=== PATIENT | male | born 2000 | race Caucasian/White ===

== ENCOUNTER 2025-04-09 14:26 | Observation (INO) | payer BC, SELFPAY ==
[2025-04-09] VITALS (7 sets, daily range): BP systolic 142–185; BP diastolic 84–114; PULSE 58–82; RESP 11–22; TEMP 36.5–36.8; O2SAT 97–98; BMI 23.7; BMI 25.5
--- NOTE | 2025-04-09 14:31 | HMH.EDGENADL ---
Discharge Plan Disposition Patient Disposition: Admitted Condition: Good Clinical Impressions Clinical Impression: Alcohol withdrawal, Nausea, vomiting and diarrhea, Rhabdomyolysis Discharge ED Provider: Mari Trujillo General Adult HPI <Adriana Phelps MD - Last Filed: 04/09/25 14:59> General Chief complaint: Nausea/Vomiting/Diarrhea Stated complaint: vomiting, stomach pain, hot/cold Time Seen by Provider: 04/09/25 14:31 History of Present Illness HPI narrative: Patient is a 25-year-old with past medical history significant for alcohol use disorder presents the emergency department with nausea vomiting and diarrhea. No blood in vomit or diarrhea. Patient has been trying to decrease his alcohol use and now drinks 7 mixed drinks from the gas station per day. Last drink was yesterday evening. 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 Denies abdominal pain. Patient also has tremulousness headache and bodyaches. Related Data Allergies Allergy/AdvReac Type Severity Reaction Status Date / Time No Known Allergies Allergy Verified 04/09/25 14:43 PFSH <Adriana Phelps MD - Last Filed: 04/09/25 14:59> [facility] Disclaimer: The information contained in this section may have been updated after the patient was seen, as this information can be updated by other users. Social History (Updated 04/09/25 @ 14:59 by Adriana Phelps MD) Smoking Status: Current every day smoker alcohol intake: current current occupational status: employed Travel in the last 8 weeks?: None Have you lived/traveled outside US in past 30 days?: No Contact w/someone who lives/traveled outside US past 30 days?: No Exposure to someone with infectious disease in past 14 days?: No Do you have a fever (greater than 100.4 F or 38 C)?: No Have you tested positive for COVID-19?: No Exposed to someone with COVID-19 in past 14 days?: No Do you have a sore throat?: No Do you have a cough?: No Do you have any weakness?: No Do you have any diarrhea?: No Are you experiencing any unusual bleeding?: No Do you have any muscle aches/pain?: No Do you have any abdominal pain?: Yes Are you experiencing loss of taste or smell?: No <Adriana Phelps MD - Last Filed: 04/09/25 14:59> ROS Obtained: Yes All systems reviewed & no additional complaints except as documented Physical Exam <Adriana Phelps MD - Last Filed: 04/09/25 14:59> General General appearance: alert and anxious Comment: diaphoretic, tremulousness Head Head exam: atraumatic Eye Eye exam: Present normal appearance and PERRL ENT ENT exam: Present mucous membranes dry Chest Chest inspection: Present normal inspection Respiratory Respiratory exam: Present normal lung sounds bilaterally; Absent respiratory distress Cardiovascular Cardiovascular exam: Present normal rhythm and tachycardia Abdominal Exam Abdominal exam: Present soft; Absent tenderness or guarding Neurological Exam Neurological exam: Present alert and oriented X3 Psychiatric Psychiatric exam: Present anxious Skin Skin exam: Present diaphoresis Medical Decision Making <Adriana Phelps MD - Last Filed: 04/09/25 14:59> Medical Records Screening: Per USPSTF and CDC recommendations, given the prevalence of disease in our region, it is our hospital?s policy to screen for HIV and viral Hepatitis for all patients aged 18 and over and those with ongoing risk factors. [facility] Inquiry Pt receiving controlled substance: No Vital Signs: 04/09/25 14:34 04/09/25 14:39 04/09/25 15:30 Temperature 98.3 F Temperature Source Oral Pulse Rate 82 64 Pulse Rate [Right] 66 Respiratory Rate 22 11 L Blood Pressure 185/114 H 142/96 H Blood Pressure [Right Arm] 185/114 H Blood Pressure Mean [Right Arm] 137 02 Sat by Pulse Oximetry 98 98 97 Oxygen Delivery Method Room Air Lab Data Lab Results 04/09/25 14:33: Urine Color Yellow, Urine Appearance Clear, Urine pH >= 9.0 H, Ur Specific [place] 1.010, Urine Protein 1+ A, Urine Glucose (UA) Negative, Urine Ketones Negative, Urine Blood Negative, Urine Nitrate Negative, Urine Bilirubin Negative, Urine Urobilinogen 0.2, Ur Leukocyte Esterase Negative, Urine RBC 3-5, Urine WBC 3-5, Ur Squamous Epith Cells 5-10, Urine Bacteria 3+, Urine Mucus 1+, Urine Opiates Screen Negative, Urine Methadone Screen Negative, Ur Barbituates Screen Negative, Ur Phencyclidine Scrn Negative, Ur Amphetamines Screen Negative, U Benzodiazepines Scrn Negative, Urine Cocaine Screen Negative, U Marijuana (THC) Screen Positive H 04/09/25 14:42: WBC 13.2 H, RBC 4.77, Hgb 14.7, Hct 42.2, MCV 88.5, MCH 30.8, MCHC 34.8, RDW 13.7, Plt Count 280, MPV 10.6 H, Neut % (Auto) 73.2, Lymph % (Auto) 18.7, [place] % (Auto) 7.1, Eos % (Auto) 0.4, Baso % (Auto) 0.3, Neut # (Auto) 9.7 H, Lymph # (Auto) 2.5, [place] # (Auto) 0.9, Eos # (Auto) 0.1, Baso # (Auto) 0.0, PT 11.0, INR 0.99, APTT 27.9, Sodium 141, Potassium 3.9, Chloride 107, Carbon Dioxide 28, Anion Gap 9.9, BUN 10, Creatinine 0.90, Estimated Creat Clear 141, Estimated GFR 103, Est GFR ( Amer) 124, Glucose 134 H, Calcium 10.3 H, Phosphorus 2.8, Magnesium 1.8, Total Bilirubin 1.0, AST 44, ALT 30, Alkaline Phosphatase 112, Total Creatine Kinase 720 H*, Total Protein 8.6 H, Albumin 4.9, Globulin 3.7 H, Albumin/Globulin Ratio 1.3, Lipase 28, Plasma/Serum Alcohol < 10 04/09/25 14:42 04/09/25 14:42 Orders (Tests/Meds): ED MEDICATIONS Generic Name Dose Route Start Last Admin Trade Name Freq PRN Reason Stop Dose Admin Diazepam 10 mg 04/09/25 14:39 04/09/25 14:53 Diazepam 10mg/2ml Syringe IV 05/09/25 14:38 10 mg Q1HP PRN Administration CIWA >16 Diazepam 5 mg 04/09/25 14:39 Diazepam 5mg Tablet PO 05/09/25 14:38 Q1HP PRN CIWA Score 8-15 Diazepam 5 mg 04/09/25 14:39 Diazepam 5mg Tablet PO 05/09/25 14:38 Q6HP PRN CIWA 2-7 Folic Acid 1 mg 04/10/25 09:00 Folic Acid 1mg Tablet PO 05/10/25 08:59 DAILY ELDER Multivitamins 10 ml/ Thiamine 1,015 mls @ 150 mls/hr 04/09/25 14:45 04/09/25 15:31 HCl 100 mg/ Magnesium Sulfate IV 04/09/25 21:30 150 mls/hr 2 gm/ Lactated Ringer's .Q6H46M ELDER Administration Multivitamins 1 each 04/09/25 17:00 Multivitamin Tablet PO 05/09/25 16:59 1700 ELDER Ondansetron HCl 4 mg 04/09/25 14:39 Ondansetron 4mg/2ml Vial IV 05/09/25 14:38 Q6HP PRN Nausea Thiamine HCl 100 mg 04/10/25 09:00 Thiamine 100mg Tablet PO 04/12/25 09:01 DAILY E[facility]ER Discontinued Medications Generic Name Dose Route Start Last Admin Trade Name Freq PRN Reason Stop Dose Admin Folic Acid 1 mg 04/09/25 14:39 04/09/25 15:45 Folic Acid 1mg Tablet PO 04/09/25 14:40 1 mg ONCE ONE Administration Lactated Ringer's 1,000 mls @ 999 mls/hr 04/09/25 14:43 04/09/25 15:44 Lactated Ringer's 1000 Ml Bag IV 04/09/25 15:43 999 mls/hr .Q1H1M ONE Administration ORDERS Category Date Time Status Activated Partial Thrombo Time Routine Lab 04/09/25 14:42 Completed Complete Blood Count Auto Diff Stat Lab 04/09/25 14:42 Completed Comprehensive Metabolic Panel Stat Lab 04/09/25 14:42 Completed Creatine Kinase Stat Lab 04/09/25 14:42 Completed Diarrhea 23 Panel, PCR Stat Lab 04/09/25 14:39 Ordered Drug Screen,Urine Routine Lab 04/09/25 14:33 Completed Ethyl Alcohol Stat Lab 04/09/25 14:42 Completed Lipase Routine Lab 04/09/25 14:42 Completed Magnesium Stat Lab 04/09/25 14:42 Completed Phosphorous Stat Lab 04/09/25 14:42 Completed Prothrombin Time INR Routine Lab 04/09/25 14:42 Completed UA [Urinalysis and Microscopic] Stat Lab 04/09/25 14:33 Completed Urine Culture Stat Micro 04/09/25 14:33 Received Medical Decision Narrative: In summary, this 25-year-old male presents to the emergency department today with vomiting. On initial evaluation patient is normal HR hypertensive afebrile saturating appropriately on room air and diaphoretic and in acute distress. Differential diagnosis includes but is not limited to alcohol withdrawal viral or bacterial gastroenteritis dehydration rhabdomyolysis. Based on these concerns, I ordered CBC CMP lipase alcohol level UDS CK GI PCR EKG PT/INR PTT UA. ECG personally interpreted demonstrates normal sinus rhythm no ST elevation ST depression or T wave inversions concerning for ischemia Patient received Zofran, diazepam, 1 L of LR and rally pack for treatment. At 3 PM transfer care given to Dr. Trujillo to follow-up laboratory workup and reassessment of patient's symptoms likely will need to be admitted for alcohol withdrawal and dehydration. <Mari Trujillo, DO - Last Filed: 04/09/25 16:17> Vital Signs: 04/09/25 14:34 04/09/25 14:39 04/09/25 15:30 Temperature 98.3 F Temperature Source Oral Pulse Rate 82 64 Pulse Rate [Right] 66 Respiratory Rate 22 11 L Blood Pressure 185/114 H 142/96 H Blood Pressure [Right Arm] 185/114 H Blood Pressure Mean [Right Arm] 137 02 Sat by Pulse Oximetry 98 98 97 Oxygen Delivery Method Room Air Lab Data Lab Results 04/09/25 14:33: Urine Color Yellow, Urine Appearance Clear, Urine pH >= 9.0 H, Ur Specific [place] 1.010, Urine Protein 1+ A, Urine Glucose (UA) Negative, Urine Ketones Negative, Urine Blood Negative, Urine Nitrate Negative, Urine Bilirubin Negative, Urine Urobilinogen 0.2, Ur Leukocyte Esterase Negative, Urine RBC 3-5, Urine WBC 3-5, Ur Squamous Epith Cells 5-10, Urine Bacteria 3+, Urine Mucus 1+, Urine Opiates Screen Negative, Urine Methadone Screen Negative, Ur Barbituates Screen Negative, Ur Phencyclidine Scrn Negative, Ur Amphetamines Screen Negative, U Benzodiazepines Scrn Negative, Urine Cocaine Screen Negative, U Marijuana (THC) Screen Positive H 04/09/25 14:42: WBC 13.2 H, RBC 4.77, Hgb 14.7, Hct 42.2, MCV 88.5, MCH 30.8, MCHC 34.8, RDW 13.7, Plt Count 280, MPV 10.6 H, Neut % (Auto) 73.2, Lymph % (Auto) 18.7, [place] % (Auto) 7.1, Eos % (Auto) 0.4, Baso % (Auto) 0.3, Neut # (Auto) 9.7 H, Lymph # (Auto) 2.5, [place] # (Auto) 0.9, Eos # (Auto) 0.1, Baso # (Auto) 0.0, PT 11.0, INR 0.99, APTT 27.9, Sodium 141, Potassium 3.9, Chloride 107, Carbon Dioxide 28, Anion Gap 9.9, BUN 10, Creatinine 0.90, Estimated Creat Clear 141, Estimated GFR 103, Est GFR ( Amer) 124, Glucose 134 H, Calcium 10.3 H, Phosphorus 2.8, Magnesium 1.8, Total Bilirubin 1.0, AST 44, ALT 30, Alkaline Phosphatase 112, Total Creatine Kinase 720 H*, Total Protein 8.6 H, Albumin 4.9, Globulin 3.7 H, Albumin/Globulin Ratio 1.3, Lipase 28, Plasma/Serum Alcohol < 10 Orders (Tests/Meds): ED MEDICATIONS Generic Name Dose Route Start Last Admin Trade Name Freq PRN Reason Stop Dose Admin Diazepam 10 mg 04/09/25 14:39 04/09/25 14:53 Diazepam 10mg/2ml Syringe IV 05/09/25 14:38 10 mg Q1HP PRN Administration CIWA >16 Diazepam 5 mg 04/09/25 14:39 Diazepam 5mg Tablet PO 05/09/25 14:38 Q1HP PRN CIWA Score 8-15 Diazepam 5 mg 04/09/25 14:39 Diazepam 5mg Tablet PO 05/09/25 14:38 Q6HP PRN CIWA 2-7 Folic Acid 1 mg 04/10/25 09:00 Folic Acid 1mg Tablet PO 05/10/25 08:59 [facility]ILY [facility] Multivitamins 10 ml/ Thiamine 1,015 mls @ 150 mls/hr 04/09/25 14:45 04/09/25 15:31 HCl 100 mg/ Magnesium Sulfate IV 04/09/25 21:30 150 mls/hr 2 gm/ Lactated Ringer's .Q6H46M ELDER Administration Multivitamins 1 each 04/09/25 17:00 Multivitamin Tablet PO 05/09/25 16:59 1700 ELDER Ondansetron HCl 4 mg 04/09/25 14:39 Ondansetron 4mg/2ml Vial IV 05/09/25 14:38 Q6HP PRN Nausea Thiamine HCl 100 mg 04/10/25 09:00 Thiamine 100mg Tablet PO 04/12/25 09:01 DAILY ELDER Discontinued Medications Generic Name Dose Route Start Last Admin Trade Name Mary PRN Reason Stop Dose Admin Folic Acid 1 mg 04/09/25 14:39 04/09/25 15:45 Folic Acid 1mg Tablet PO 04/09/25 14:40 1 mg ONCE ONE Administration Lactated Ringer's 1,000 mls @ 999 mls/hr 04/09/25 14:43 04/09/25 15:44 Lactated Ringer's 1000 Ml Bag IV 04/09/25 15:43 999 mls/hr .Q1H1M ONE Administration ORDERS Category Date Time Status Activated Partial Thrombo Time Routine Lab 04/09/25 14:42 Completed Complete Blood Count Auto Diff Stat Lab 04/09/25 14:42 Completed Comprehensive Metabolic Panel Stat Lab 04/09/25 14:42 Completed Creatine Kinase Stat Lab 04/09/25 14:42 Completed Diarrhea 23 Panel, PCR Stat Lab 04/09/25 14:39 Ordered Drug Screen,Urine Routine Lab 04/09/25 14:33 Completed Ethyl Alcohol Stat Lab 04/09/25 14:42 Completed Lipase Routine Lab 04/09/25 14:42 Completed Magnesium Stat Lab 04/09/25 14:42 Completed Phosphorous Stat Lab 04/09/25 14:42 Completed Prothrombin Time INR Routine Lab 04/09/25 14:42 Completed UA [Urinalysis and Microscopic] Stat Lab 04/09/25 14:33 Completed Urine Culture Stat Micro 04/09/25 14:33 Received Medical Decision Narrative: In summary, this 25-year-old male presents to the emergency department today with vomiting. On initial evaluation patient is normal HR hypertensive afebrile saturating appropriately on room air and diaphoretic and in acute distress. Differential diagnosis includes but is not limited to alcohol withdrawal viral or bacterial gastroenteritis dehydration rhabdomyolysis. Based on these concerns, I ordered CBC CMP lipase alcohol level UDS CK GI PCR EKG PT/INR PTT UA. ECG personally interpreted demonstrates normal sinus rhythm no ST elevation ST depression or T wave inversions concerning for ischemia Patient received Zofran, diazepam, 1 L of LR and rally pack for treatment. At 3 PM transfer care given to Dr. Trujillo to follow-up laboratory workup and reassessment of patient's symptoms likely will need to be admitted for alcohol withdrawal and dehydration. DO Ronnie: I assumed care of the patient at 3 PM at time of departure the previous provider. On my assessment, he is lying in bed in no acute distress. He initially had a CIWA of 15 but on repeat is 10:07 of Valium. Labs significant for mild leukocytosis in the setting of profuse nausea, vomiting, and diarrhea. He has no abdominal pain or anything that suggest acute infection. Urine is contaminated with squamous cells but he does not have any urinary symptoms. Chemistry demonstrates elevated CK at 720, but normal kidney function. He has normal liver enzymes, normal lipase. Ultimately given profuse nausea, vomiting, and diarrhea, alcohol withdrawals, rhabdomyolysis, I feel he would benefit from admission for further evaluation and management. Fluid resuscitation is ongoing at this time and will continue to monitor on CIWA protocols. I had an interactive discussion with the hospitalist who admitted the patient in stable condition for further evaluation and management. Critical Care <Adriana Phelps MD - Last Filed: 04/09/25 14:59> Critical Care Time Critical Care Time: No
[2025-04-09 14:38] LABS: Microscopic, Urine URINE MICROSCOPIC (MICROSCOPIC)
--- NOTE | 2025-04-09 14:39 | ECG_ITS ---
APPROVED REPORT Exam: Resting ECG HR:72 bpm ECG Measurements Heart Rate 72 AXES MS 161 P 65 QRSd 97 QRS 84 QT 424 T 38 QTc 448 Conclusion SINUS RHYTHM INCOMPLETE RIGHT BUNDLE BRANCH BLOCK [90+ ms QRS DURATION, TERMINAL R IN V1/V2, 40+ ms S IN I/aVL/V4/V5/V6] BORDERLINE ECG UNCONFIRMED REPORT Electronically signed by : EVAN PRADHAN, 04/10/2025 02:39:40
[2025-04-09 14:42] LABS: Appearance,Urine CLEAR (Clear); Bilirubin,Urine Negative (Negative); Blood, Urine Negative (Negative); Color,Urine YELLOW (Yellow); Glucose,Urine (UA) Negative (Negative); Ketones,Urine Negative (Negative); Leukocyte Esterase,Urine Negative (Negative); Nitrate,Urine Negative (Negative); Protein,Urine 1+ (Negative); Urobilinogen,Urine 0.2 EU/dl (0.2)
[2025-04-09 14:44] LABS: PH,Urine >= 9.0 (5.0-8.5)
--- NOTE | 2025-04-09 14:51 | PC.NURSE ---
Pt discloses that he does have a hx of having a seizure when he was sick in the past. Provider and and primary RN notified. Seizure pads applied to bed. staff also notified that patient does have a small knife on his hip.
[2025-04-09] MEDS: diazePAM 10MG/2ML SYRINGE 10 MG IV (14:53)
[2025-04-09 15:00] LABS: Bacteria,Urine 3+ /lpf; Mucus,Urine 1+ /lpf
[2025-04-09 15:02] LABS: Basophils % 0.3 % (0.1-2.0); Eosinophils # 0.1 Kmm3 (0.0-0.4); Eosinophils % 0.4 % (0.1-12.0); Hematocrit 42.2 % (42.0-52.0); Hemoglobin 14.7 g/dL (14.1-18.0); Immature Granulocytes # 0.04 10^3uL; Immature Granulocytes % 0.3 %; Lymphocytes # 2.5 K/mm3 (0.7-4.5); Lymphocytes % 18.7 % (10-50); Mean Corpuscular HGB Conc 34.8 g/dL (31.8-35.4); Mean Corpuscular Hemoglobin 30.8 pg (27.0-31.2); Mean Corpuscular Volume 88.5 fl (80-94); Mean Platelet Volume 10.6 fl (7.4-10.4); Monocytes # 0.9 K/mm3 (0.1-1.0); Monocytes % 7.1 % (1.7-9.3); Neutrophils # 9.7 K/mm3 (1.8-7.8); Neutrophils % 73.2 % (37.0-80.0); Nucleated Red Blood Cells # 0 10^3/uL; Nucleated Red Blood Cells % 0 %; Platelet Count 280 K/mm3 (142-424); Red Blood Count 4.77 M/mm3 (4.60-6.20); Red Cell Distribution Width 13.7 % (11.5-17.5); Red Cell Distribution Width-SD 44.3 fL; White Blood Count 13.2 K/mm3 (4.8-10.8)
[2025-04-09 15:15] LABS: Lipase 28 U/L (23-300)
[2025-04-09 15:17] LABS: Activated Partial Thrombo Time 27.9 seconds (22.8-30.6); Alanine Aminotransferase 30 U/L (12-78); Albumin Level 4.9 g/dl (3.5-5.0); Albumin/Globulin Ratio 1.3 (1.1-1.8); Alkaline Phosphatase 112 U/L (38-126); Anion Gap 9.9 mEq/L (5-15); Aspartate Amino Transferase 44 U/L (17-59); Blood Urea Nitrogen 10 mg/dl (9-20); Calcium 10.3 mg/dl (8.4-10.2); Carbon Dioxide 28 mmol/L (22.0-30.0); Chloride 107 mmol/L (98-107); Creatine Kinase 720 U/L (55-170); Creatinine Clearance Estimated 141 mL/min (50-200); Estimated Glomerular Filt Rate 103 ml/min (>60); GFR (African American) 124 ML/MIN (>60); Globulin 3.7 g/dL (1.3-3.2); Glucose 134 mg/dl (74-100); INR 0.99 (0.9-1.1); Magnesium 1.8 mg/dl (1.6-2.3); Phosphorous 2.8 mg/dl (2.5-4.5); Potassium 3.9 mmoL/L (3.5-5.1); Sodium 141 mmol/L (136-145); Total Protein,Serum 8.6 g/dl (6.3-8.2)
[2025-04-09 15:19] LABS: Ethyl Alcohol < 10 mg/dl (0-10)
[2025-04-09] MEDS: MVI, ADULT NO.1 WITH VIT K 10 ML, THIAMINE HCL 100 MG, MAGNESIUM SULFATE 2 GM in LACTAT... 150 ML IV (15:31)
[2025-04-09 15:32] LABS: Barbiturates Screen,Urine Negative ng/ml (<200)
[2025-04-09 15:33] LABS: Amphetamine/Metha Screen,Urine Negative ng/ml (<1000); Benzodiazepines Screen,Urine Negative ng/ml (<200)
[2025-04-09 15:34] LABS: Methadone Screen,Urine Negative ng/ml (<300)
[2025-04-09 15:35] LABS: Cannabinoid Screen,Urine Positive ng/ml (<50); Cocaine Screen,Urine Negative ng/ml (<300)
[2025-04-09 15:36] LABS: Opiate Screen,Urine Negative ng/ml (<300); Phencyclidine Screen,Urine Negative ng/ml (<25)
[2025-04-09] MEDS: LACTATED RINGERS 1000ML 1,000 ML 999 ML IV (15:44)
[2025-04-09] MEDS: FOLIC ACID 1MG TABLET 1 MG PO (15:45)
--- NOTE | 2025-04-09 16:08 | PC.NURSE ---
I notified of the need for a bed to admit.
[2025-04-09] MEDS: MULTIVITAMIN TABLET 1 EACH PO (16:14)
--- NOTE | 2025-04-09 16:20 | PC.NURSE ---
report called to [facility]
--- NOTE | 2025-04-09 16:31 | PC.NURSE ---
arrived by w/c from ED
--- NOTE | 2025-04-09 16:59 | EXP.HP ---
History of Present Illness *Admission Date: 04/09/25 *Reason for visit:: Alcohol withdrawal *History of present illness: Jean Claude Dahl is a 25-year-old male with a medical history significant for alcohol use disorder, alcohol withdrawal seizures who presents with 1 day onset of diaphoresis, tremors. 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 He states over the past week he has been drinking quite heavily in the afternoons, and this morning he woke up with sweatiness and tremors, nausea/vomiting which prompted him to come to the ER. States his last drink was yesterday. He also states he has been drinking out of spring [place] and thinks his symptoms are from that. Denies abdominal pain, diarrhea, fever/chills, chest pain, shortness of breath. Also endorses smoking weed but is a chronic habit and has not had issues before with it. Workup in the ED significant for WBC 13.2, calcium 10.3, CK 720. Initial CIWA 15 which improved with Valium 10 mg. Case discussed with ED provider and decision made to admit patient for alcohol withdrawal, rhabdomyolysis. [facility] Disclaimer: The information contained in this section may have been updated after the patient was seen, as this information can be updated by other users. Social History (Updated 04/09/25 @ 14:59 by Adriana Phelps MD) Smoking Status: Current every day smoker alcohol intake: current current occupational status: employed Travel in the last 8 weeks?: None Have you lived/traveled outside US in past 30 days?: No Contact w/someone who lives/traveled outside US past 30 days?: No Exposure to someone with infectious disease in past 14 days?: No Do you have a fever (greater than 100.4 F or 38 C)?: No Have you tested positive for COVID-19?: No Exposed to someone with COVID-19 in past 14 days?: No Do you have a sore throat?: No Do you have a cough?: No Do you have any weakness?: No Do you have any diarrhea?: No Are you experiencing any unusual bleeding?: No Do you have any muscle aches/pain?: No Do you have any abdominal pain?: Yes Are you experiencing loss of taste or smell?: No Other Medical History Have you received the Flu Vaccine for this season: No Have you received the Pneumonia Vaccine: No Meds Home Medications and Allergies Home Medications ?Medication ?Instructions ?Recorded ?Confirmed ?Type No Known Home Medications 04/09/25 04/09/25 History New Prescriptions to Start Prescriptions: Allergies Allergy/AdvReac Type Severity Reaction Status Date / Time No Known Allergies Allergy Verified 04/09/25 14:43 Exam Data for Last 24 hours Vital signs and Labs for Last 24 Hours: Temp Pulse Resp BP Pulse Ox O2 Del Method 98.1 F 65 17 174/84 H 98 Room Air 04/09/25 16:48 04/09/25 16:48 04/09/25 16:48 04/09/25 16:48 04/09/25 16:48 04/09/25 16:48 Laboratory Results - last 24 hr 04/09/25 14:33: Urine Color Yellow, Urine Appearance Clear, Urine pH >= 9.0 H, Ur Specific [place] 1.010, Urine Protein 1+ A, Urine Glucose (UA) Negative, Urine Ketones Negative, Urine Blood Negative, Urine Nitrate Negative, Urine Bilirubin Negative, Urine Urobilinogen 0.2, Ur Leukocyte Esterase Negative, Urine RBC 3-5, Urine WBC 3-5, Ur Squamous Epith Cells 5-10, Urine Bacteria 3+, Urine Mucus 1+, Urine Opiates Screen Negative, Urine Methadone Screen Negative, Ur Barbituates Screen Negative, Ur Phencyclidine Scrn Negative, Ur Amphetamines Screen Negative, U Benzodiazepines Scrn Negative, Urine Cocaine Screen Negative, U Marijuana (THC) Screen Positive H 04/09/25 14:42: WBC 13.2 H, RBC 4.77, Hgb 14.7, Hct 42.2, MCV 88.5, MCH 30.8, MCHC 34.8, RDW 13.7, Plt Count 280, MPV 10.6 H, Neut % (Auto) 73.2, Lymph % (Auto) 18.7, [place] % (Auto) 7.1, Eos % (Auto) 0.4, Baso % (Auto) 0.3, Neut # (Auto) 9.7 H, Lymph # (Auto) 2.5, [place] # (Auto) 0.9, Eos # (Auto) 0.1, Baso # (Auto) 0.0, PT 11.0, INR 0.99, APTT 27.9, Sodium 141, Potassium 3.9, Chloride 107, Carbon Dioxide 28, Anion Gap 9.9, BUN 10, Creatinine 0.90, Estimated Creat Clear 141, Estimated GFR 103, Est GFR ( Amer) 124, Glucose 134 H, Calcium 10.3 H, Phosphorus 2.8, Magnesium 1.8, Total Bilirubin 1.0, AST 44, ALT 30, Alkaline Phosphatase 112, Total Creatine Kinase 720 H*, Total Protein 8.6 H, Albumin 4.9, Globulin 3.7 H, Albumin/Globulin Ratio 1.3, Lipase 28, Plasma/Serum Alcohol < 10 I & O for Last 24 hours: Intake & Output 04/06/25 04/07/25 04/08/25 04/09/25 23:59 23:59 23:59 23:59 Weight 85.684 kg Constitutional Constitutional: no acute distress *Routine HEENT Exam Head: Present normocephalic Eye: Present EOMI and PERRL ENT: Present mucous membranes moist *Routine Neck Exam Neck: Present supple; Absent lymphadenopathy *Routine Respiratory Exam Respiratory: Present CTA bilaterally *Routine Cardiovascular Exam Cardiovascular: Present RRR *Routine Abdominal Exam Abdominal: Present soft and normoactive bowel sounds; Absent tenderness *Routine Rectal Exam Rectal:: deferred *Routine Genitalia Exam Genitalia:: deferred *Routine Extremities Exam Extremities: Absent cyanosis, clubbing or edema *Routine Skin Exam Skin: Present warm; Absent rash *Routine Neurological Exam Neurological: Present alert and oriented X3 Assessment and Plan *Assessment and plan (1) Rhabdomyolysis: Status: Acute Category: Medical Code(s): M62.82 - Rhabdomyolysis (2) Alcohol withdrawal: Status: Acute Category: Medical Code(s): F10.939 - Alcohol use, unspecified with withdrawal, unspecified Plan Jean Claude Dahl is a 25-year-old male with a medical history significant for alcohol use disorder, alcohol withdrawal seizures who presents with 1 day onset of diaphoresis, tremors. 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 He states over the past week he has been drinking quite heavily in the afternoons, and this morning he woke up with sweatiness and tremors, nausea/vomiting which prompted him to come to the ER. States his last drink was yesterday. He also states he has been drinking out of spring water and thinks his symptoms are from that. Denies abdominal pain, diarrhea, fever/chills, chest pain, shortness of breath. Also endorses smoking weed but is a chronic habit and has not had issues before with it. Workup in the ED significant for WBC 13.2, calcium 10.3, CK 720. Initial CIWA 15 which improved with Valium 10 mg. Case discussed with ED provider and decision made to admit patient for alcohol withdrawal, rhabdomyolysis. #Alcohol use disorder #Alcohol withdrawal ? Has been drinking heavily with beers over the past week. Last drink was day before admission. Initial CIWA 15. ? Initiated on CIWA protocol, Valium as needed. ? Finish rally pack. Daily vitamins. ? Does not have interest in detox at this time. #Rhabdomyolysis #Hypercalcemia ? Initial calcium 10.3, CK 720. In the setting of dehydration working out in the [place]. ? Continue with LR at 125 mL/h after rally pack. Full code DVT prophylaxis: Lovenox 40 mg
--- NOTE | 2025-04-09 19:41 | PC.NURSE ---
DURING ADMISSION ASSESSMENT, PATIENT WAS ASKED BY MD IF HE WOULD BE INTERESTED IN ANY ALCOHOL DETOX SERVICES, PATIENT DENIED BUT WAS OBSERVED NODDING HER HEAD 'YES' PERSISTENTLY, AFTER LEAVING THE ROOM PATIENTS SPECIFICALLY REQUESTED THAT WE PUSH FOR DETOX SERVICES AND SUPPORT.
[2025-04-09] MEDS: LACTATED RINGERS 1000ML 1,000 ML 125 ML IV (22:29)
[2025-04-10 04:00] VITALS: BP 151/80; PULSE 73; RESP 14; TEMP 37; O2SAT 99; BMI 23.7
[2025-04-10 06:20] LABS: Basophils % 0.4 % (0.1-2.0); Eosinophils # 0.2 Kmm3 (0.0-0.4); Hematocrit 39.1 % (42.0-52.0); Immature Granulocytes # 0.03 10^3uL; Immature Granulocytes % 0.4 %; Lymphocytes # 1.8 K/mm3 (0.7-4.5); Lymphocytes % 23.7 % (10-50); Mean Corpuscular HGB Conc 33.5 g/dL (31.8-35.4); Mean Corpuscular Hemoglobin 30.3 pg (27.0-31.2); Mean Corpuscular Volume 90.5 fl (80-94); Mean Platelet Volume 10.6 fl (7.4-10.4); Monocytes # 0.6 K/mm3 (0.1-1.0); Monocytes % 7.8 % (1.7-9.3); Neutrophils % 65.7 % (37.0-80.0); Nucleated Red Blood Cells # 0 10^3/uL; Nucleated Red Blood Cells % 0 %; Platelet Count 229 K/mm3 (142-424); Red Blood Count 4.32 M/mm3 (4.60-6.20); Red Cell Distribution Width-SD 46.6 fL; White Blood Count 7.7 K/mm3 (4.8-10.8)
[2025-04-10 06:30] LABS: Albumin Level 3.9 g/dl (3.5-5.0); Chloride 110 mmol/L (98-107); Potassium 3.9 mmoL/L (3.5-5.1); Sodium 140 mmol/L (136-145)
[2025-04-10 06:33] LABS: Alanine Aminotransferase 22 U/L (12-78); Albumin/Globulin Ratio 1.4 (1.1-1.8); Alkaline Phosphatase 82 U/L (38-126); Anion Gap 5.9 mEq/L (5-15); Aspartate Amino Transferase 33 U/L (17-59); Blood Urea Nitrogen 11 mg/dl (9-20); Calcium 8.9 mg/dl (8.4-10.2); Carbon Dioxide 28 mmol/L (22.0-30.0); Creatinine Clearance Estimated 141 mL/min (50-200); Estimated Glomerular Filt Rate 103 ml/min (>60); GFR (African American) 124 ML/MIN (>60); Globulin 2.8 g/dL (1.3-3.2); Glucose 101 mg/dl (74-100); Magnesium 2.2 mg/dl (1.6-2.3); Total Protein,Serum 6.7 g/dl (6.3-8.2)
--- NOTE | 2025-04-10 06:46 | PC.NURSE ---
Patient alert and oriented. Patient has rested very well, woken easily. Banana bag given, fluids started after bag was finished. CIWAs 0 throughout shift. Patient stated he had no problems and no tremors were present. No nausea or vomiting. No diarrhea. No headache. Call light in reach.
[2025-04-10 07:39] LABS: Hemoglobin 13.1 g/dL (14.1-18.0)
[2025-04-10 08:00] VITALS: BP 134/79; PULSE 56; RESP 16; TEMP 36.6; O2SAT 99
--- OUTSIDE RECORDS SUMMARY | 2025-04-10 10:00 | XMS_ITS | Clinical Summary ---
Author Organization [facility] Address [address] [place], [place] [id number] Care Team Providers Care Horticultural Services Supervisor Name Role Phone Unavailable Primary Care Provider Unavailabl e Allergies No known active allergies Medications No known medications Active Problems Problem Noted Date Diagnosed Date High myopia, both eyes 12/04/2022 PVD (posterior vitreous detachment), both eyes 0 12/04/2022 Vitreous floaters of both eyes 12/04/2022 Family History Medical History Relation Comments No Ocular Disease No Family History Social History Tobacco Use Types Packs/Day Years Used Date Smoking Tobacco: Never Smokeless Tobacco: Never Alcohol Use Standard Drinks/Week Comments Never 0 (1 standard drink = 0.6 oz pur e alcohol) AUDIT-C Answer Date Recorded Frequency of Alcohol Consumption Never 12/02/2019 Average Number of Drinks Not on file 020 Frequency of Binge Drinking Not on file 11/20 Area Deprivation Index Answer Date Titus rded National Score (1-100), lower number is lower ri sk 60 05/12/2024 State Score (1-10), lower number is lower risk 4 05/12/2024 Data from: https://www.neigh borhoodatlas.medicine.[facility].edu/. Last address used for calculation [address] 05/12/2024 Sex and Gender Information Value Date Recorded Sex Assigned at Not on file Legal Sex Male 9:31 AM EST Gender Identity Not on file Sexual Orientation Not on file Plan of Treatment Upcoming Encounters Date Type Department Care Team (Latest Contact Info) Description 05/18/2025 3:00 PM EDT Office Visit [facility] Ophthal[facility] [address] [place] [address] Michael Salvador, OD [address] [place], [place] [id number] 1 year high myopic Health Maintenance Due Date Last Done Comments Peds To Adult Transition Ini tial Discussion 2012 Peds To Adult Transition ual Assessment 02/22/2014 HPV Vaccine (1 - Male 3-dose series) 02/22/2015 Anxiety Screening 02/22/2018 Depression Screening 02/22/2018 HIV Screening 02/22/2018 Hepatitis C Screening 02/22/2018 DTaP,Tdap,Td Vaccine (7 - Td or Tdap) 05/19/2024 05/19/2014, 08/10/2004, 04/14/2001, Additional history exists Covid-19 Vaccine (2023-2 5 season) 2024 Influenza Vaccine (Season Ended) 2025 Hepatitis B Vaccine Completed 04/14/2001, 2000, [address] [facility] FEP PPO
[2025-04-10] MEDS: FOLIC ACID 1MG TABLET 1 MG PO (10:28)
[2025-04-10] MEDS: THIAMINE 100MG TABLET 100 MG PO (10:28)
--- NOTE | 2025-04-10 10:48 | P.DS_ITS ---
General Admission date:: 04/09/25 HPI HPI HPI: Jean Claude Dahl is a 25-year-old male with a medical history significant for alcohol use disorder, alcohol withdrawal seizures who presents with 1 day onset of diaphoresis, tremors. 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 He states over the past week he has been drinking quite heavily in the afternoons, and this morning he woke up with sweatiness and tremors, nausea/vomiting which prompted him to come to the ER. States his last drink was yesterday. He also states he has been drinking out of spring water and thinks his symptoms are from that. Denies abdominal pain, diarrhea, fever/chills, chest pain, shortness of breath. Also endorses smoking weed but is a chronic habit and has not had issues before with it. Workup in the ED significant for WBC 13.2, calcium 10.3, CK 720. Initial CIWA 15 which improved with Valium 10 mg. Case discussed with ED provider and decision made to admit patient for alcohol withdrawal, rhabdomyolysis. Hospital Course Hospital Course Hospital Course: Jean Claude Dahl is a 25-year-old male with a medical history significant for alcohol use disorder, alcohol withdrawal seizures who presents with 1 day onset of diaphoresis, tremors. 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 He states over the past week he has been drinking quite heavily in the afternoons, and this morning he woke up with sweatiness and tremors, nausea/vomiting which prompted him to come to the ER. States his last drink was yesterday. He also states he has been drinking out of spring water and thinks his symptoms are from that. Denies abdominal pain, diarrhea, fever/chills, chest pain, shortness of breath. Also endorses smoking weed but is a chronic habit and has not had issues before with it. Workup in the ED significant for WBC 13.2, calcium 10.3, CK 720. Initial CIWA 15 which improved with Valium 10 mg. Case discussed with ED provider and decision made to admit patient for alcohol withdrawal, rhabdomyolysis. #Alcohol use disorder #Alcohol withdrawal ? Has been drinking heavily with beers over the past week. Last drink was day before admission. Initial CIWA 15. ? Remained stable during hospital course. No significant withdrawal symptoms. Declined detox programs, but states he will try to taper on his own. #Rhabdomyolysis #Hypercalcemia ? Initial calcium 10.3, CK 720. In the setting of dehydration working out in the [place]. Improved with IV fluid resuscitation. Exam Data for Last 24 hours Vital signs and Labs for Last 24 Hours: Temp Pulse Resp BP Pulse Ox O2 Del Method 98 F 56 L 16 134/79 99 Room Air 04/10/25 08:00 04/10/25 08:00 04/10/25 08:00 04/10/25 08:00 04/10/25 08:00 04/10/25 09:23 Laboratory Results - last 24 hr 04/09/25 14:33: Urine Color Yellow, Urine Appearance Clear, Urine pH >= 9.0 H, Ur Specific Erskine 1.010, Urine Protein 1+ A, Urine Glucose (UA) Negative, Urine Ketones Negative, Urine Blood Negative, Urine Nitrate Negative, Urine Bilirubin Negative, Urine Urobilinogen 0.2, Ur Leukocyte Esterase Negative, Urine RBC 3-5, Urine WBC 3-5, Ur Squamous Epith Cells 5-10, Urine Bacteria 3+, Urine Mucus 1+, Urine Opiates Screen Negative, Urine Methadone Screen Negative, Ur Barbituates Screen Negative, Ur Phencyclidine Scrn Negative, Ur Amphetamines Screen Negative, U Benzodiazepines Scrn Negative, Urine Cocaine Screen Negative, U Marijuana (THC) Screen Positive H 04/09/25 14:42: WBC 13.2 H, RBC 4.77, Hgb 14.7, Hct 42.2, MCV 88.5, MCH 30.8, MCHC 34.8, RDW 13.7, Plt Count 280, MPV 10.6 H, Neut % (Auto) 73.2, Lymph % (Auto) 18.7, Rapides % (Auto) 7.1, Eos % (Auto) 0.4, Baso % (Auto) 0.3, Neut # (Auto) 9.7 H, Lymph # (Auto) 2.5, Rapides # (Auto) 0.9, Eos # (Auto) 0.1, Baso # (Auto) 0.0, PT 11.0, INR 0.99, APTT 27.9, Sodium 141, Potassium 3.9, Chloride 107, Carbon Dioxide 28, Anion Gap 9.9, BUN 10, Creatinine 0.90, Estimated Creat Clear 141, Estimated GFR 103, Est GFR ( Amer) 124, Glucose 134 H, Calcium 10.3 H, Phosphorus 2.8, Magnesium 1.8, Total Bilirubin 1.0, AST 44, ALT 30, Alkaline Phosphatase 112, Total Creatine Kinase 720 H*, Total Protein 8.6 H, Albumin 4.9, Globulin 3.7 H, Albumin/Globulin Ratio 1.3, Lipase 28, Plasma/Serum Alcohol < 10 04/10/25 05:58: WBC 7.7 D, RBC 4.32 L, Hgb 13.1 L D, Hct 39.1 L, MCV 90.5, MCH 30.3, MCHC 33.5, RDW 14.0, Plt Count 229, MPV 10.6 H, Neut % (Auto) 65.7, Lymph % (Auto) 23.7, Rapides % (Auto) 7.8, Eos % (Auto) 2.0, Baso % (Auto) 0.4, Neut # (Auto) 5.0, Lymph # (Auto) 1.8, Rapides # (Auto) 0.6, Eos # (Auto) 0.2, Baso # (Auto) 0.0, Sodium 140, Potassium 3.9, Chloride 110 H, Carbon Dioxide 28, Anion Gap 5.9, BUN 11, Creatinine 0.90, Estimated Creat Clear 141, Estimated GFR 103, Est GFR ( Amer) 124, Glucose 101 H D, Calcium 8.9, Magnesium 2.2 D, Total Bilirubin 1.0, AST 33, ALT 22 D, Alkaline Phosphatase 82, Total Protein 6.7, Albumin 3.9 D, Globulin 2.8, Albumin/Globulin Ratio 1.4 I & O for Last 24 hours: Intake & Output 04/07/25 04/08/25 04/09/25 04/10/25 23:59 23:59 23:59 23:59 Intake Total 240 / 240 Output Total 0 / 0 0 / 0 Balance 240 / 240 0 / 0 Weight 85.684 kg 79.379 kg Constitutional Constitutional: no acute distress *Routine HEENT Exam Head: Present normocephalic Eye: Present EOMI and PERRL ENT: Present mucous membranes moist *Routine Neck Exam Neck: Present supple; Absent lymphadenopathy *Routine Respiratory Exam Respiratory: Present CTA bilaterally *Routine Cardiovascular Exam Cardiovascular: Present RRR *Routine Abdominal Exam Abdominal: Present soft and normoactive bowel sounds; Absent tenderness *Routine Extremities Exam Extremities: Absent cyanosis, clubbing or edema *Routine Skin Exam Skin: Present warm; Absent rash *Routine Neurological Exam Neurological: Present alert and oriented X3 Results Data Completed and Pending Labs on day of discharge: Labs from last 24 hours 04/10/25 04/09/25 04/09/25 05:58 14:42 14:33 WBC 7.7 D 13.2 H RBC 4.32 L 4.77 Hgb 13.1 L D 14.7 Hct 39.1 L 42.2 MCV 90.5 88.5 MCH 30.3 30.8 MCHC 33.5 34.8 RDW 14.0 13.7 Plt Count 229 280 MPV 10.6 H 10.6 H Neut % (Auto) 65.7 73.2 Lymph % (Auto) 23.7 18.7 Rapides % (Auto) 7.8 7.1 Eos % (Auto) 2.0 0.4 Baso % (Auto) 0.4 0.3 Neut # (Auto) 5.0 9.7 H Lymph # (Auto) 1.8 2.5 Rapides # (Auto) 0.6 0.9 Eos # (Auto) 0.2 0.1 Baso # (Auto) 0.0 0.0 PT 11.0 INR 0.99 APTT 27.9 Sodium 140 141 Potassium 3.9 3.9 Chloride 110 H 107 Carbon Dioxide 28 28 Anion Gap 5.9 9.9 BUN 11 10 Creatinine 0.90 0.90 Estimated Creat Clear 141 141 Estimated GFR 103 103 Est GFR ( Amer) 124 124 Glucose 101 H D 134 H Calcium 8.9 10.3 H Phosphorus 2.8 Magnesium 2.2 D 1.8 Total Bilirubin 1.0 1.0 AST 33 44 ALT 22 D 30 Alkaline Phosphatase 82 112 Total Creatine Kinase 720 H* Total Protein 6.7 8.6 H Albumin 3.9 D 4.9 Globulin 2.8 3.7 H Albumin/Globulin Ratio 1.4 1.3 Lipase 28 Urine Color Yellow Urine Appearance Clear Urine pH >= 9.0 H Ur Specific Erskine 1.010 Urine Protein 1+ A Urine Glucose (UA) Negative Urine Ketones Negative Urine Blood Negative Urine Nitrate Negative Urine Bilirubin Negative Urine Urobilinogen 0.2 Ur Leukocyte Esterase Negative Urine RBC 3-5 Urine WBC 3-5 Ur Squamous Epith Cells 5-10 Urine Bacteria 3+ Urine Mucus 1+ Urine Opiates Screen Negative Urine Methadone Screen Negative Ur Barbituates Screen Negative Ur Phencyclidine Scrn Negative Ur Amphetamines Screen Negative U Benzodiazepines Scrn Negative Urine Cocaine Screen Negative U Marijuana (THC) Screen Positive H Plasma/Serum Alcohol < 10 DS: Diagnosis Discharge Diagnosis (1) Rhabdomyolysis: Status: Acute Code(s): M62.82 - Rhabdomyolysis (2) Alcohol withdrawal: Status: Acute Code(s): F10.939 - Alcohol use, unspecified with withdrawal, unspecified Meds Home Medications and Allergies Home Medications ?Medication ?Instructions ?Recorded ?Confirmed ?Type No Known Home Medications 04/09/25/11/13 History New Prescriptions to Start Prescriptions: Allergies Allergy/AdvReac Type Severity Reaction Status Date / Time No Known Allergies Allergy Verified 04/09/25 14:43 Discharge Plan Disposition Patient Disposition: Home, Self-Care Condition: Fair Discharge Order Discharge Orders: Discharge Order (Routine); Ordered 04/10/25 Ordered By: Morales Calabrese Follow up Plan Prescriptions/Medication Reconciliation: No Action No Known Home Medications Problem Reconciliation Problems Reviewed?: Yes Patient Discharge Instructions Patient Instructions: Alcohol Use Disorder (Alternative Therapy), Rhabdomyolysis, Alcohol Use Disorder, Alcohol Withdrawal Print Language: Tamazight Providers Primary Care Provider: Provider,Referral Admit Provider: Morales Calabrese Attending Provider: Morales Calabrese
--- NOTE | 2025-04-11 11:04 | SW/DCPLANNER ---
Spoke with patient on the phone. Patient stated that he is doing well. Patient stated that he will take some time off. Patient stated that he was not prescribed any new medicine. Patient stated that he has no upcoming appointments. Patient stated that he has no concerns or questions at this time. Bryan Harkins
--- NOTE | 2025-04-12 17:27 | PEERSUPPORT ---
Peer Support Note Patient Information Patient Information: DOS: 04/12/2025 Ps attempted to make contact, no answer, voicemail full.
== END 2025-04-10 11:17 | disposition home or self-care (01) ==
LOC: ER 15:59 → 2ND 16:12
PROVIDERS: Student in an Organized Health Care Education/Training Program; Admitting Provider Student in an Organized Health Care Education/Training Program; Emergency Provider Emergency Medicine; Visit Provider Student in an Organized Health Care Education/Training Program
DX: M62.82 Rhabdomyolysis (principal); F10.930 Alcohol use, unspecified with withdrawal, uncomplicated; E83.52 Hypercalcemia; F17.200 Nicotine dependence, unspecified, uncomplicated
CPT/HCPCS: 96361 ×2; 96365; 96366; 96375; 36415; 80053; 80307; 80320; 81001; 82550; 83690; 83735; 84100; 85025; 85610; 85730; 87086; 93005; G0378; J3360; J3411; J3475; J7120